=== PATIENT | female | born 1970 | race Caucasian/White ===

== ENCOUNTER 2018-08-18 07:08 | Emergency (ER) | payer OTHER ==
[2018-08-18] MEDS: LIDOCAINE 1% (MDV) 20 ML INJ SC (07:43)
[2018-08-18] MEDS: BACITRACIN 0.9 GM OINT TOP (07:46)
== END 2018-08-18 09:05 | disposition home or self-care (01) ==
LOC: FTE 09:05
DX: L02.31 Cutaneous abscess of buttock (principal); F17.210 Nicotine dependence, cigarettes, uncomplicated
CPT/HCPCS: 10060; 99283-25

== ENCOUNTER → 2018-08-27 | Emergency (ER) | payer SELFPAY, OTHER | END | disposition left against medical advice (07) | LOC: FTE 23:46 | DX: Z53.21 Procedure and treatment not carried out due to patient leaving prior to being seen by health care provider (principal) ==